=== PATIENT | female | born 1950 | race Caucasian/White ===

== ENCOUNTER → 2016-08-27 | Outpatient (CLI) | payer BC | END | disposition home or self-care (01) | LOC: C.RDSM 16:02 | PROVIDERS: ATTEND Physical Medicine & Rehabilitation Sports Medicine | DX: M17.11 Unilateral primary osteoarthritis, right knee (principal) ==

== ENCOUNTER → 2017-09-19 | Outpatient (CLI) | payer BC ==
--- NOTE | 2017-09-19 17:20 | DIAGNOSTIC IMAGING REPORT ---
RIGHT SHOULDER 3 VIEWS CLINICAL HISTORY: Right shoulder pain. FINDINGS: 3 views of the right shoulder are obtained. No prior studies are available for comparison at the time of dictation. The skeletal structures are osteopenic. There is no radiographic evidence of fracture or dislocation in the right shoulder. Mild productive degenerative change is seen at the acromioclavicular joint. Arthritic change and sclerosis is seen in the greater tuberosity of the humeral head. The overlying soft tissues are within normal limits. The visualized right lung parenchyma appears clear. IMPRESSION: 1. No acute bony abnormality is seen in the right shoulder. 2. Osteopenia and mild degenerative change as above. Electronically signed by: Sim Arndt M.D. 09/19/2017 5:19 PM Dictated Date/Time: 09/19/2017 5:18 PM
--- NOTE | 2017-09-19 17:37 | DIAGNOSTIC IMAGING REPORT ---
CERVICAL SPINE 5 VIEWS CLINICAL HISTORY: Right shoulder pain. FINDINGS: AP, lateral, bilateral oblique, and odontoid views of the cervical spine are obtained. No prior studies are available for comparison at the time of dictation. The skeletal structures are osteopenic. There is no radiographic evidence of fracture or subluxation involving the cervical spine. The odontoid process and lateral masses appear intact on the open-mouth view. The atlantodental articulation appears maintained noting mild productive degenerative change. Vertebral body height is maintained throughout the cervical spine. There is minimal anterolisthesis at C3-C4 and C4-C5. Alignment is otherwise preserved. There is straightening of the cervical lordosis with reversal centered at C4. The spinolaminar line is preserved. The spinous processes are intact. Tiny anterior osteophytes are seen throughout. No significant neural foraminal stenosis is suggested on the oblique views. Mild multilevel facet arthropathy is seen on the frontal view. The disc spaces are maintained. No large posterior disc osteophyte complex is suggested. The prevertebral soft tissues are normal as imaged. The partially imaged apical lung parenchyma appears clear. IMPRESSION: 1. No acute bony abnormality is seen involving the cervical spine. 2. Osteopenia and mild spondylotic change as above. Dictated: 09/19/2017 5:15 PM Transcribed: 09/19/2017 5:37 PM [email or web address] Electronically signed by: Sim Arndt M.D. 09/19/2017 5:56 PM Dictated Date/Time: 09/19/2017 5:15 PM
== END | disposition home or self-care (01) ==
LOC: C.RAD1850 16:48
PROVIDERS: ATTEND Physician Assistant
DX: M25.511 Pain in right shoulder (principal); M85.80 Other specified disorders of bone density and structure, unspecified site

== ENCOUNTER → 2017-11-04 | Outpatient (CLI) | payer BC ==
[2017-11-04 17:48] LABS: BASO % 0.6 %; BASO ABS # 0.05 K/uL (0-0.2); EOS % 5.7 %; EOS ABS # 0.47 K/uL (0-0.5); HEMATOCRIT 43.1 % (37-47); HEMOGLOBIN 15.4 g/dL (12.0-16.0); IG# 0.02 K/uL (0.00-0.02); LYMPH % 22.5 %; LYMPH ABS # 1.87 K/uL (1.2-3.4); MEAN CELL VOLUME 89.2 fL (80-100); MEAN CORPUSCULAR HEMOGLOBIN 31.9 pg (25-34); MEAN CORPUSCULAR HGB CONC 35.7 g/dl (32-36); MEAN PLATELET VOLUME 9.4 fL (7.4-10.4); MONO % 5.9 %; MONO ABS # 0.49 K/uL (0.11-0.59); NEUT % 65.1 %; NEUT ABS # 5.41 K/uL (1.4-6.5); PLATELET COUNT 186 K/uL (130-400); RED CELL DISTRIBUTION WIDTH CV 12.7 % (11.5-14.5); RED CELL DISTRIBUTION WIDTH SD 41.2 fL (36.4-46.3); WHITE BLOOD COUNT 8.31 K/uL (4.8-10.8)
[2017-11-04 18:57] LABS: ALKALINE PHOSPHATASE 179 U/L (45-117); ALT/SGPT 35 U/L (12-78); AST/SGOT 13 U/L (15-37); BLOOD UREA NITROGEN 28 mg/dl (7-18); CALCIUM 9.5 mg/dl (8.5-10.1); CARBON DIOXIDE 26 mmol/L (21-32); CHOLESTEROL 271 mg/dl (0-200); GLUCOSE 354 mg/dl (70-99); LDL CHOLESTEROL CALCULATED 187 mg/dl; POTASSIUM 4.2 mmol/L (3.5-5.1); SODIUM 133 mmol/L (136-145); TOTAL PROTEIN 7.4 gm/dl (6.4-8.2); TRANSFERRIN 317 mg/dl (200-360)
[2017-11-05 06:41] LABS: HEMOGLOBIN A1C 11.2 % (4.5-5.6)
== END | disposition home or self-care (01) ==
LOC: C.LABMFLN 14:38
PROVIDERS: ATTEND Physician Assistant
DX: E78.5 Hyperlipidemia, unspecified (principal)